=== PATIENT | male | born 1955 | race African-American/Black ===

== ENCOUNTER 2017-10-30 09:01 | Emergency (ER) | payer BC, MEDICAID, OTHER ==
[~2017-10-30] VITALS: Ht 182.9 cm; Wt 53.0 kg
[~2017-10-30 09:01] MED LIST: ACET650S25 PO; DOCU100T PO; HYDR-4001 PO; LACT10SO7 PO; MULT1TAB11 PO; MYL30 PO; OMEP20TA2 PO; PHEN100C4 PO; POTA10TA15 PO; SILV50CR31 TP
[2017-10-30 10:25] LABS: CHLORIDE 108 mEq/L (98-107)
[2017-10-30 10:29] LABS: HEMATOCRIT. 25.9 % (42.0-52.0); HEMOGLOBIN. 7.9 g/dL (14.0-18.0); MEAN CORPUSCULAR HEMOGLOBIN 28.3 pg (28.0-32.0); MEAN CORPUSCULAR VOLUME 92.4 fL (80.0-94.0); MEAN PLATELET VOLUME 6.6 fl (7.4-10.4); PLATELET 495 x1000/uL (130-400); RED CELL DISTRIBUTION WIDTH 24.1 % (11.6-14.6)
[2017-10-30 10:32] LABS: PROTHROMBIN TIME 10.9 sec (9.4-11.6)
[2017-10-30 11:07] LABS: PLATELET ESTIMATE INCREASED
[2017-10-30 11:30] VITALS: BP 126/71
== END 2017-10-30 11:31 | disposition home or self-care (01) ==
LOC: ER 09:01
DX: D64.9 Anemia, unspecified (principal); F17.200 Nicotine dependence, unspecified, uncomplicated; Z86.73 Personal history of transient ischemic attack (TIA), and cerebral infarction without residual deficits; Z79.82 Long term (current) use of aspirin
CPT/HCPCS: 36415; 71045; 80053; 85025; 85610; 86850; 86900; 86901; 99285; 99406; J7030; Z7610

== ENCOUNTER 2018-11-27 12:31 | Inpatient (IN) | payer MEDICAID, OTHER ==
[~2018-11-27] VITALS: Ht 182.9 cm; Wt 51.3 kg
[2018-11-27 14:17] LABS: HEMATOCRIT. 29.4 % (42.0-52.0); HEMOGLOBIN. 9.4 g/dL (14.0-18.0); MEAN CORPUSCULAR VOLUME 84.9 fL (80.0-94.0); MEAN PLATELET VOLUME 7.3 fl (7.4-10.4); PLATELET 468 x1000/uL (130-400); RED BLOOD CELL COUNT 3.46 mill/uL (4.7-6.1); RED CELL DISTRIBUTION WIDTH 20.3 % (11.6-14.6)
[2018-11-27] MEDS ORDERED: SODIUM CHLORIDE 0.9% 500 ML IV ONE (14:17)
[2018-11-27 14:23] LABS: CHLORIDE 82 mEq/L (98-107)
[2018-11-27] MEDS ORDERED: METHYLPREDNISOLONE SOD SUCC 125 MG/2 ML VIAL IV STA (14:42)
[2018-11-27 14:45] LABS: PLATELET ESTIMATE SLIGHTLY INCREASED
[2018-11-27] MEDS ORDERED: IPRATROPIUM/ALBUTEROL 0.5-3(2.5)MG/3ML NEB HHN ONE (14:45)
[2018-11-27 15:15] LABS: ETHANOL BLOOD < 10 mg/dL
[2018-11-27 15:20] LABS: CREATINE KINASE 423 IU/L (39-308)
[2018-11-27 15:22] LABS: CREATINE KINASE MB FRACTION 11.4 ng/mL (0.5-3.6)
[2018-11-27 15:25] LABS: *AMPHETAMINES SCREEN URINE NEGATIVE (NEGATIVE); *BARBITURATES SCREEN URINE NEGATIVE (NEGATIVE)
[2018-11-27 15:26] LABS: *BENZODIAZEPINES SCREEN URINE NEGATIVE (NEGATIVE); *COCAINE SCREEN URINE NEGATIVE (NEGATIVE); METHADONE URINE SCREEN NEGATIVE (NEGATIVE); OPIATES URINE SCREEN NEGATIVE (NEGATIVE)
[2018-11-27 15:27] LABS: CANNABINOID URINE SCREEN NEGATIVE (NEGATIVE); PHENCYCLIDINE URINE SCREEN NEGATIVE (NEGATIVE)
[2018-11-27 15:46] LABS: PARTIAL THROMBOPLASTIN TIME 27.5 sec (23.4-31.0); PROTHROMBIN TIME 10.6 sec (9.6-11.0)
[2018-11-27] MEDS ORDERED: NICOTINE 21MG PATCH TD NR (16:45)
[2018-11-27] MEDS ORDERED: ONDANSETRON HCL 4MG/2ML INJ IV PRN (18:30)
[2018-11-27 18:58] LABS: TOTAL IRON BINDING CAPACITY 533 ug/dL (250-450)
[2018-11-27 20:00] VITALS: BP 119/70
[2018-11-27] MEDS: SODIUM CHLORIDE 0.9% 1,000 ML IV SCH (20:34)
[2018-11-27] MEDS: METHYLPREDNISOLONE SOD SUCC 40 MG/ML VIAL IV SCH (20:34)
[2018-11-27] MEDS ORDERED: IPRA4AER INH (20:53)
[2018-11-27] MEDS: CHLORDIAZEPOXIDE 25MG CAPSULE PO SCH (21:02)
[2018-11-27] MEDS: ACETAMINOPHEN 325MG TABLET PO PRN (21:02)
[2018-11-27] MEDS: LORAZEPAM 2MG/ML CPJ IV PRN (22:51)
[2018-11-28] VITALS: BP 111/65
[2018-11-28] MEDS: IPRATROPIUM/ALBUTEROL 0.5-3(2.5)MG/3ML NEB HHN SCH ×7 (00:35→21:26)
[2018-11-28 04:00] VITALS: BP 114/60
[2018-11-28] MEDS: METHYLPREDNISOLONE SOD SUCC 40 MG/ML VIAL IV SCH ×3 (04:08→21:02)
[2018-11-28] MEDS: CHLORDIAZEPOXIDE 25MG CAPSULE PO SCH ×3 (05:38→21:02)
[2018-11-28 08:00] VITALS: BP 125/80
[2018-11-28 08:56] LABS: HEMATOCRIT. 29.8 % (42.0-52.0); HEMOGLOBIN. 9.2 g/dL (14.0-18.0); MEAN CORPUSCULAR HEMOGLOBIN 26.8 pg (28.0-32.0); MEAN CORPUSCULAR VOLUME 86.6 fL (80.0-94.0); MEAN PLATELET VOLUME 7.5 fl (7.4-10.4); PLATELET 402 x1000/uL (130-400); RED BLOOD CELL COUNT 3.44 mill/uL (4.7-6.1); RED CELL DISTRIBUTION WIDTH 20.1 % (11.6-14.6)
[2018-11-28 09:11] LABS: CHLORIDE 101 mEq/L (98-107)
[2018-11-28] MEDS: NICOTINE 21MG PATCH TD SCH (09:48)
[2018-11-28] MEDS ORDERED: IRON SUCROSE COMPLEX 100 MG/5 ML ML IV SCH (11:30)
[2018-11-28 12:00] VITALS: BP 121/59
[2018-11-28 14:13] LABS: PLATELET ESTIMATE NORMAL
[2018-11-28 16:00] VITALS: BP 118/74
[2018-11-28] MEDS: SODIUM CHLORIDE 0.9% 1,000 ML IV SCH (17:53)
[2018-11-28] MEDS: ENOXAPARIN 60MG/0.6ML SYR SUBCUT SCH (18:52)
[2018-11-28 20:00] VITALS: BP 122/80
[2018-11-28] MEDS ORDERED: IOHEXOL-350 100 ML BOTTLE ONE (21:35)
[2018-11-28] MEDS: LORAZEPAM 2MG/ML CPJ IV PRN (22:17)
[2018-11-29] VITALS: BP 128/71
[2018-11-29] MEDS: IPRATROPIUM/ALBUTEROL 0.5-3(2.5)MG/3ML NEB HHN SCH ×6 (00:13→20:02)
[2018-11-29] MEDS: LORAZEPAM 2MG/ML CPJ IV PRN ×2 (02:36→11:15)
[2018-11-29] MEDS: METHYLPREDNISOLONE SOD SUCC 40 MG/ML VIAL IV SCH ×3 (04:59→14:54)
[2018-11-29] MEDS: CHLORDIAZEPOXIDE 25MG CAPSULE PO SCH ×3 (05:00→21:30)
[2018-11-29] MEDS: ACETAMINOPHEN 325MG TABLET PO PRN (07:07)
[2018-11-29 08:22] VITALS: BP 138/99
[2018-11-29 09:08] LABS: HEMATOCRIT. 30.6 % (42.0-52.0); HEMOGLOBIN. 9.4 g/dL (14.0-18.0); MEAN CORPUSCULAR HEMOGLOBIN 26.8 pg (28.0-32.0); MEAN CORPUSCULAR VOLUME 87.5 fL (80.0-94.0); MEAN PLATELET VOLUME 6.9 fl (7.4-10.4); PLATELET 457 x1000/uL (130-400); RED BLOOD CELL COUNT 3.49 mill/uL (4.7-6.1); RED CELL DISTRIBUTION WIDTH 20.8 % (11.6-14.6)
[2018-11-29] MEDS: NICOTINE 21MG PATCH TD SCH (09:45)
[2018-11-29 11:04] LABS: CHLORIDE 103 mEq/L (98-107)
[2018-11-29] MEDS: ENOXAPARIN 60MG/0.6ML SYR SUBCUT SCH ×2 (11:11→21:30)
[2018-11-29 11:58] VITALS: BP 109/64
[2018-11-29 15:15] LABS: PLATELET ESTIMATE INCREASED
[2018-11-29 15:17] VITALS: BP 137/85
[2018-11-29 20:00] VITALS: BP 130/84
[2018-11-30] VITALS: BP 117/63
[2018-11-30 04:00] VITALS: BP 120/64
[2018-11-30] MEDS: IPRATROPIUM/ALBUTEROL 0.5-3(2.5)MG/3ML NEB HHN SCH ×4 (04:00→13:13)
[2018-11-30] MEDS: CHLORDIAZEPOXIDE 25MG CAPSULE PO SCH ×2 (06:13→14:57)
[2018-11-30 07:15] LABS: HEMATOCRIT. 26.4 % (42.0-52.0); HEMOGLOBIN. 8.1 g/dL (14.0-18.0); MEAN CORPUSCULAR HEMOGLOBIN 26.9 pg (28.0-32.0); MEAN CORPUSCULAR VOLUME 87.4 fL (80.0-94.0); MEAN PLATELET VOLUME 6.7 fl (7.4-10.4); PLATELET 336 x1000/uL (130-400); RED BLOOD CELL COUNT 3.02 mill/uL (4.7-6.1); RED CELL DISTRIBUTION WIDTH 20.7 % (11.6-14.6)
[2018-11-30 07:17] LABS: CHLORIDE 104 mEq/L (98-107)
[2018-11-30 08:00] VITALS: BP 131/76
[2018-11-30] MEDS: ENOXAPARIN 60MG/0.6ML SYR SUBCUT SCH (08:42)
[2018-11-30] MEDS: NICOTINE 21MG PATCH TD SCH (08:42)
[2018-11-30] MEDS ORDERED: PREDNISONE 20MG TABLET PO SCH (09:00)
[2018-11-30 10:01] LABS: PLATELET ESTIMATE NORMAL
[2018-11-30] MEDS ORDERED: POTASSIUM CHLORIDE 20MEQ TABLET SR PO NR (11:00)
[2018-11-30 12:00] VITALS: BP 105/60
[2018-11-30 16:00] VITALS: BP 109/72
[2018-11-30 16:27] VITALS: BP 109/72
[2018-11-30] MEDS ORDERED: DOCUSATE SODIUM 100MG CAPSULE PO SCH (17:00)
[2018-11-30] MEDS ORDERED: FERROUS SULFATE 325MG TABLET PO SCH (17:15)
== END 2018-11-30 18:25 | disposition home or self-care (01) | DRG 299 ==
LOC: ER 14:10 → 5WST 14:53 → EDBEDREQ 14:57 → ENRESERV 18:17
PROVIDERS: ADMIT Internal Medicine; ATTEND Internal Medicine
DX: I82.411 Acute embolism and thrombosis of right femoral vein (principal); J96.01 Acute respiratory failure with hypoxia; J44.1 Chronic obstructive pulmonary disease with (acute) exacerbation; E87.1 Hypo-osmolality and hyponatremia; E87.8 Other disorders of electrolyte and fluid balance, not elsewhere classified; D64.9 Anemia, unspecified; F10.21 Alcohol dependence, in remission; F17.210 Nicotine dependence, cigarettes, uncomplicated; I69.331 Monoplegia of upper limb following cerebral infarction affecting right dominant side; Z79.899 Other long term (current) drug therapy; Z71.6 Tobacco abuse counseling
CPT/HCPCS: 36415; 71045; 71275; 80048; 80305; 80320; 82550; 82553; 82728; 83540; 83550; 83735; 83880; 84443; 84484; 93005; 93970; 94640; 96374; 97161; 99285; J1650; J2060; J2920; J2930; J7040; J7512; J7620; Q9967; G0480